=== PATIENT | female | born 1955 | race Asian ===

== ENCOUNTER 2016-08-13 14:43 | Emergency (ER) | payer MEDICARE, OTHER ==
[~2016-08-13] VITALS: Ht 149.9 cm; Wt 91.0 kg
[~2016-08-13 14:43] MED LIST: ALLO300T46; ALLOPURINOL; AMLO10TA4; ASMANEX; ATOR10TA; CLON0.1T; FLUO-124; GLIP10TA72; GLUCO8; IBUP-2029; INSU100I4; JANUVIA; LORATADINE; METF850T2; METO100T9; NAPR-217; PROT40; PROVENTIL; SITA100T6; VALS160T2; [UNRECOGNIZED DRUG - CODE]
[2016-08-13] MEDS ORDERED: HYDROCODONE/ACETAMINOPHEN 5/325MG TABLET PO ONE (16:45)
[2016-08-13] MEDS ORDERED: ONDANSETRON 4MG ODT PO ONE (16:45)
[2016-08-13] MEDS ORDERED: IBUPROFEN 800MG TABLET PO ONE (18:30)
[2016-08-13 21:39] VITALS: BP 117/50
== END 2016-08-13 21:42 | disposition home or self-care (01) ==
LOC: ER 15:57
DX: S20.212A Contusion of left front wall of thorax, initial encounter (principal); S20.211A Contusion of right front wall of thorax, initial encounter; K21.9 Gastro-esophageal reflux disease without esophagitis; I10 Essential (primary) hypertension; E11.9 Type 2 diabetes mellitus without complications; M10.9 Gout, unspecified; Z87.442 Personal history of urinary calculi; Z79.4 Long term (current) use of insulin; Z79.899 Other long term (current) drug therapy; W18.30XA Fall on same level, unspecified, initial encounter; Y93.K1 Activity, walking an animal; Y99.8 Other external cause status; Y92.89 Other specified places as the place of occurrence of the external cause; Z91.041 Radiographic dye allergy status
CPT/HCPCS: 71111; 99284; Q0162